=== PATIENT | female | born 1930 | race Caucasian/White ===

== ENCOUNTER → 2017-07-09 | Outpatient (CLI) | payer MEDICARE, BC ==
[~2017-07-09] MED LIST: CYAN500 PO; ELIQUIS5 MG PO; ERGO400 PO; FURO20 PO; MULTI VITAMIN1 EACH PO; Percocet 5-3251 EACH PO; SIMV40 PO; SPIR50 PO; WARF5 PO
[2017-07-09 12:19] LABS: BASOPHILS ABSOLUTE AUTO 0.02 K/mm3 (0.00-0.23); BASOPHILS PERCENT AUTO 0 % (0-2); EOSINOPHILS ABSOLUTE AUTO 0.01 K/mm3 (0.00-0.68); EOSINOPHILS PERCENT AUTO 0 % (0-6); Hematocrit 43.7 % (33.0-51.0); Hemoglobin 14.8 g/dL (11.5-16.0); IMMATURE GRAN ABSOLUTE AUTO 0.02 K/mm3 (0.00-0.10); IMMATURE GRAN PERCENT AUTO 0 % (0-1); LYMPHOCYTES ABSOLUTE AUTO 0.56 K/mm3 (0.84-5.20); LYMPHOCYTES PERCENT AUTO 9 % (21-46); MONOCYTES ABSOLUTE AUTO 0.56 K/mm3 (0.16-1.47); MONOCYTES PERCENT AUTO 9 % (4-13); Mean Corpuscular HGB 31.7 pg (26.0-34.0); Mean Corpuscular HGB Conc 33.9 g/dL (31.5-36.5); Mean Corpuscular Volume 94 fL (80-100); NEUTROPHILS ABSOLUTE AUTO 5.13 K/mm3 (1.96-9.15); NEUTROPHILS PERCENT AUTO 81 % (41-73); Platelet Count 210 K/mm3 (150-400); RDW Coefficient Variation 13.9 % (11.7-14.2); RDW Standard Deviation 46.6 fL (35.1-46.3); Red Blood Cell Count 4.67 M/mm3 (3.80-5.20)
[2017-07-09 12:35] LABS: Albumin, Blood 3.7 g/dL (3.4-5.0); Albumin/Globulin Ratio 1.1 (0.8-1.8); Bun/Creatinine Ratio 20.7 (12.0-20.0); Calcium, Blood 9.2 mg/dL (8.5-10.1); Creatinine, Blood 1.4 mg/dL (0.40-1.00); Globulin, Blood 3.4 g/dL (2.2-4.0); Potassium, Blood 4.3 mmol/L (3.5-5.5); Total Protein, Blood 7.1 g/dL (6.4-8.2); Troponin I 0.033 ng/mL (0.000-0.040)
== END | disposition home or self-care (01) ==
LOC: LAB SHORT 12:13 → LAB EV 12:13
PROVIDERS: Physician Assistant
DX: R06.02 Shortness of breath (principal)
CPT/HCPCS: 80053; 83880; 84484; 85025

== ENCOUNTER 2017-07-10 15:04 | Day surgery (SDC) | payer MEDICARE, BC ==
[~2017-07-10 15:04] MED LIST changes: -FURO20 PO; -WARF5 PO
[2017-07-10] MEDS ORDERED: WARF5 PO (17:33)
[2017-07-11] MEDS ORDERED: FURO20 PO (11:20)
== END 2017-07-10 18:03 | disposition home or self-care (01) ==
LOC: ATC 15:04
DX: I48.91 Unspecified atrial fibrillation (principal)
CPT/HCPCS: 96372; J1650

== ENCOUNTER 2017-07-11 07:46 | Day surgery (SDC) | payer MEDICARE, BC ==
[~2017-07-11 07:46] MED LIST changes: +WARF5 PO
[2017-07-11] MEDS ORDERED: FURO20 PO (11:20)
== END 2017-07-11 09:28 | disposition home or self-care (01) ==
LOC: ATC 07:46
DX: I48.91 Unspecified atrial fibrillation (principal); R06.01 Orthopnea; R60.9 Edema, unspecified; R05 Cough; I10 Essential (primary) hypertension
CPT/HCPCS: 96372; J1650

== ENCOUNTER 2017-07-12 00:23 | Day surgery (SDC) | payer MEDICARE, BC ==
[~2017-07-12] VITALS: Ht 154.9 cm; Wt 80.5 kg
[~2017-07-12 00:23] MED LIST changes: +FURO20 PO
[2017-07-12 10:18] LABS: BASOPHILS ABSOLUTE AUTO 0.02 K/mm3 (0.00-0.23); BASOPHILS PERCENT AUTO 0 % (0-2); EOSINOPHILS ABSOLUTE AUTO 0.03 K/mm3 (0.00-0.68); EOSINOPHILS PERCENT AUTO 1 % (0-6); Hematocrit 44.5 % (33.0-51.0); Hemoglobin 15.2 g/dL (11.5-16.0); IMMATURE GRAN ABSOLUTE AUTO 0.02 K/mm3 (0.00-0.10); IMMATURE GRAN PERCENT AUTO 0 % (0-1); LYMPHOCYTES ABSOLUTE AUTO 0.64 K/mm3 (0.84-5.20); LYMPHOCYTES PERCENT AUTO 12 % (21-46); MONOCYTES ABSOLUTE AUTO 0.49 K/mm3 (0.16-1.47); MONOCYTES PERCENT AUTO 9 % (4-13); Mean Corpuscular HGB 31.7 pg (26.0-34.0); Mean Corpuscular HGB Conc 34.2 g/dL (31.5-36.5); Mean Corpuscular Volume 93 fL (80-100); Mean Platelet Volume 11.4 fL (9.1-12.4); NEUTROPHILS ABSOLUTE AUTO 4.14 K/mm3 (1.96-9.15); NEUTROPHILS PERCENT AUTO 77 % (41-73); Platelet Count 230 K/mm3 (150-400); RDW Standard Deviation 47.1 fL (35.1-46.3); Red Blood Cell Count 4.79 M/mm3 (3.80-5.20); White Blood Cell Count 5.34 K/mm3 (4.00-11.30)
[2017-07-12 10:34] LABS: Bun/Creatinine Ratio 25.6 (12.0-20.0); Creatinine, Blood 1.33 mg/dL (0.40-1.00); Potassium, Blood 3.9 mmol/L (3.5-5.5)
== END 2017-07-12 09:35 | disposition home or self-care (01) ==
LOC: ATC 00:23
PROVIDERS: Internal Medicine
DX: I48.91 Unspecified atrial fibrillation (principal); I10 Essential (primary) hypertension
CPT/HCPCS: 36416; 80048; 85025; 85610; 96372; J1650

== ENCOUNTER 2017-07-13 02:05 | Day surgery (SDC) | payer MEDICARE, BC | END 2017-07-13 09:05 | disposition home or self-care (01) | LOC: ATC 02:05 | DX: I48.91 Unspecified atrial fibrillation (principal); I10 Essential (primary) hypertension | CPT/HCPCS: 36416; 85610; 99211; J1650 ==

== ENCOUNTER 2017-07-31 09:11 | Inpatient (IN) | payer MEDICARE, BC ==
[~2017-07-31] VITALS: Ht 157.5 cm; Wt 86.3 kg
[2017-07-31] MEDS ORDERED: WARF4 PO (09:25)
[2017-07-31] MEDS ORDERED: WARF3 PO (09:25)
[2017-07-31] MEDS ORDERED: METO25ER PO (09:25)
[2017-07-31] MEDS ORDERED: Lisinopril2.5 MG PO (09:25)
[2017-07-31 09:49] LABS: BASOPHILS ABSOLUTE AUTO 0.02 K/mm3 (0.00-0.23); BASOPHILS PERCENT AUTO 0 % (0-2); EOSINOPHILS ABSOLUTE AUTO 0.04 K/mm3 (0.00-0.68); EOSINOPHILS PERCENT AUTO 1 % (0-6); Hematocrit 47.6 % (33.0-51.0); IMMATURE GRAN ABSOLUTE AUTO 0.01 K/mm3 (0.00-0.10); IMMATURE GRAN PERCENT AUTO 0 % (0-1); LYMPHOCYTES ABSOLUTE AUTO 0.86 K/mm3 (0.84-5.20); LYMPHOCYTES PERCENT AUTO 16 % (21-46); MONOCYTES ABSOLUTE AUTO 0.57 K/mm3 (0.16-1.47); MONOCYTES PERCENT AUTO 11 % (4-13); Mean Corpuscular HGB 30.2 pg (26.0-34.0); Mean Corpuscular HGB Conc 31.5 g/dL (31.5-36.5); Mean Corpuscular Volume 96 fL (80-100); Mean Platelet Volume 10.6 fL (9.1-12.4); NEUTROPHILS ABSOLUTE AUTO 3.79 K/mm3 (1.96-9.15); NEUTROPHILS PERCENT AUTO 72 % (41-73); Platelet Count 212 K/mm3 (150-400); RDW Coefficient Variation 13.8 % (11.7-14.2); RDW Standard Deviation 48.7 fL (35.1-46.3); Red Blood Cell Count 4.97 M/mm3 (3.80-5.20); White Blood Cell Count 5.29 K/mm3 (4.00-11.30)
[2017-07-31 10:11] LABS: Alanine Aminotransfer (ALT/SGP 87 U/L (12-78); Albumin, Blood 3.2 g/dL (3.4-5.0); Albumin/Globulin Ratio 0.9 (0.8-1.8); Alk Phos 127 U/L (50-136); Anion Gap 11 mmol/L (6-16); Aspartate Aminotrans (AST/SGOT 61 U/L (12-37); Bilirubin, Total 0.6 mg/dL (0.1-1.0); Blood Urea Nitrogen 82 mg/dL (8-24); Bun/Creatinine Ratio 44.3 (12.0-20.0); CO2, Blood 24 mmol/L (21-32); Calcium, Blood 8.5 mg/dL (8.5-10.1); Chloride, Blood 103 mmol/L (98-108); Creatinine, Blood 1.85 mg/dL (0.40-1.00); Globulin, Blood 3.4 g/dL (2.2-4.0); Glomerular Filtration Rate 28 (60-); Glucose, Blood 80 mg/dL (70-99); Potassium, Blood 4.3 mmol/L (3.5-5.5); Sodium, Blood 138 mmol/L (136-145); Total Protein, Blood 6.6 g/dL (6.4-8.2); Troponin I <0.015 ng/mL (0.000-0.040)
[2017-07-31 10:14] LABS: Prothrombin Time Results 85.4 Sec (9.7-11.5)
[2017-07-31 10:27] LABS: International Normalized Ratio 7.71
[2017-07-31 18:51] LABS: CPK Creatine Kinase 51 U/L (26-193); Creatine Kinase MB 1.9 ng/mL (0.0-3.6); Creatine Kinase MB Index 3.7 (0.0-4.0); Troponin I <0.015 ng/mL (0.000-0.040)
[2017-08-01 02:27] LABS: Hematocrit 45.4 % (33.0-51.0); Mean Corpuscular HGB 30.6 pg (26.0-34.0); Mean Platelet Volume 10.7 fL (9.1-12.4); Platelet Count 211 K/mm3 (150-400); RDW Standard Deviation 47.5 fL (35.1-46.3)
[2017-08-01 02:33] LABS: Mean Corpuscular Volume 93 fL (80-100); Prothrombin Time Results 56.8 Sec (9.7-11.5)
[2017-08-01 02:34] LABS: International Normalized Ratio 5.19
[2017-08-01 02:36] LABS: CPK Creatine Kinase 59 U/L (26-193); Creatine Kinase MB 2.1 ng/mL (0.0-3.6); Creatine Kinase MB Index 3.6 (0.0-4.0); Troponin I <0.015 ng/mL (0.000-0.040)
[2017-08-01 03:06] LABS: Albumin, Blood 3.2 g/dL (3.4-5.0); Bilirubin, Total 0.9 mg/dL (0.1-1.0); Calcium, Blood 8.6 mg/dL (8.5-10.1); Creatinine, Blood 1.81 mg/dL (0.40-1.00); Globulin, Blood 3.3 g/dL (2.2-4.0); Magnesium, Blood 2.2 mg/dL (1.6-2.4); Potassium, Blood 4.2 mmol/L (3.5-5.5); Total Protein, Blood 6.5 g/dL (6.4-8.2)
[2017-08-02 04:23] LABS: Albumin, Blood 3.3 g/dL (3.4-5.0); Albumin/Globulin Ratio 0.9 (0.8-1.8); Bilirubin, Total 1.1 mg/dL (0.1-1.0); Bun/Creatinine Ratio 42.7 (12.0-20.0); Calcium, Blood 8.9 mg/dL (8.5-10.1); Creatinine, Blood 2.06 mg/dL (0.40-1.00); Globulin, Blood 3.5 g/dL (2.2-4.0); Potassium, Blood 5.2 mmol/L (3.5-5.5); Total Protein, Blood 6.8 g/dL (6.4-8.2)
[2017-08-02 09:21] LABS: International Normalized Ratio 3.35; Prothrombin Time Results 36.2 Sec (9.7-11.5)
[2017-08-03 04:39] LABS: International Normalized Ratio 3.05; Prothrombin Time Results 32.8 Sec (9.7-11.5)
[2017-08-03 04:45] LABS: Alanine Aminotransfer (ALT/SGP 84 U/L (12-78); Albumin, Blood 3.2 g/dL (3.4-5.0); Alk Phos 129 U/L (50-136); Anion Gap 11 mmol/L (6-16); Aspartate Aminotrans (AST/SGOT 57 U/L (12-37); Bilirubin, Direct 0.3 mg/dL (0.0-0.3); Bilirubin, Indirect 0.9 mg/dL (0.1-0.7); Bilirubin, Total 1.2 mg/dL (0.1-1.0); Blood Urea Nitrogen 95 mg/dL (8-24); Bun/Creatinine Ratio 45.2 (12.0-20.0); CO2, Blood 23 mmol/L (21-32); Calcium, Blood 9.1 mg/dL (8.5-10.1); Chloride, Blood 97 mmol/L (98-108); Globulin, Blood 3.3 g/dL (2.2-4.0); Glomerular Filtration Rate 24 (60-); Glucose, Blood 116 mg/dL (70-99); Phosphorus, Blood 4.8 mg/dL (2.5-4.9); Potassium, Blood 5.3 mmol/L (3.5-5.5); Sodium, Blood 131 mmol/L (136-145); Total Protein, Blood 6.5 g/dL (6.4-8.2)
[2017-08-04 04:04] LABS: BASOPHILS ABSOLUTE AUTO 0.03 K/mm3 (0.00-0.23); BASOPHILS PERCENT AUTO 1 % (0-2); EOSINOPHILS ABSOLUTE AUTO 0.15 K/mm3 (0.00-0.68); EOSINOPHILS PERCENT AUTO 3 % (0-6); Hematocrit 44.1 % (33.0-51.0); Hemoglobin 14.5 g/dL (11.5-16.0); IMMATURE GRAN ABSOLUTE AUTO 0.01 K/mm3 (0.00-0.10); IMMATURE GRAN PERCENT AUTO 0 % (0-1); LYMPHOCYTES PERCENT AUTO 19 % (21-46); MONOCYTES ABSOLUTE AUTO 0.53 K/mm3 (0.16-1.47); MONOCYTES PERCENT AUTO 11 % (4-13); Mean Corpuscular HGB Conc 32.9 g/dL (31.5-36.5); Mean Corpuscular Volume 91 fL (80-100); Mean Platelet Volume 10.8 fL (9.1-12.4); NEUTROPHILS ABSOLUTE AUTO 3.21 K/mm3 (1.96-9.15); NEUTROPHILS PERCENT AUTO 67 % (41-73); Platelet Count 237 K/mm3 (150-400); RDW Coefficient Variation 13.8 % (11.7-14.2); RDW Standard Deviation 46.5 fL (35.1-46.3); Red Blood Cell Count 4.83 M/mm3 (3.80-5.20); White Blood Cell Count 4.83 K/mm3 (4.00-11.30)
[2017-08-04 04:29] LABS: Bun/Creatinine Ratio 49.5 (12.0-20.0); Calcium, Blood 8.9 mg/dL (8.5-10.1); Creatinine, Blood 1.84 mg/dL (0.40-1.00); Potassium, Blood 4.3 mmol/L (3.5-5.5)
[2017-08-04 08:12] LABS: HBSAG SCREEN Negative (Negative); HEP A AB, IGM Negative (Negative); HEP B CORE AB, IGM Negative (Negative); HEP C VIRUS AB <0.1 (0.0-0.9)
[2017-08-05] MEDS ORDERED: LANOXIN125 MCG PO (09:21)
[2017-08-05] MEDS ORDERED: POTCHL20ER PO (09:22)
== END 2017-08-05 09:48 | disposition home health service (06) | DRG 291 ==
LOC: ER 09:11 → PCU 13:00 → ERHOLD 13:00 → PCU 19:27
PROVIDERS: Emergency Medicine; Hospitalist; Internal Medicine
DX: I13.0 Hypertensive heart and chronic kidney disease with heart failure and stage 1 through stage 4 chronic kidney disease, or unspecified chronic kidney disease (principal); I50.23 Acute on chronic systolic (congestive) heart failure; N17.9 Acute kidney failure, unspecified; Z87.891 Personal history of nicotine dependence; Z79.01 Long term (current) use of anticoagulants; Z79.891 Long term (current) use of opiate analgesic; I48.2 Chronic atrial fibrillation; Z96.651 Presence of right artificial knee joint; G47.00 Insomnia, unspecified; N18.3 Chronic kidney disease, stage 3 (moderate); R74.0 Nonspecific elevation of levels of transaminase and lactic acid dehydrogenase [LDH]; E78.5 Hyperlipidemia, unspecified; R53.1 Weakness; E87.70 Fluid overload, unspecified; R79.1 Abnormal coagulation profile; R19.7 Diarrhea, unspecified; E65 Localized adiposity
CPT/HCPCS: 36415; 71046; 80048; 80053; 80069; 80074; 82248; 82550; 82553; 83735; 83880; 84443; 84484; 85025; 85027; 85610; 93005; 93010; 96374; 96375; 97110; 97116; 97161; 97166; 97530; 97535; 99285; G8978; G8979; G8987; G8988; J1160; J1940; J3010

== ENCOUNTER 2018-05-03 09:27 | Emergency (ER) | payer MEDICARE, BC ==
[~2018-05-03] VITALS: Ht 157.5 cm; Wt 80.7 kg
[~2018-05-03 09:27] MED LIST changes: +LANOXIN125 MCG PO; +Lisinopril2.5 MG PO; +METO25ER PO; +POTCHL20ER PO; +SPIR25 PO; +WARF3 PO; +WARF4 PO
[2018-05-03 11:04] LABS: BASOPHILS ABSOLUTE AUTO 0.02 K/mm3 (0.00-0.23); BASOPHILS PERCENT AUTO 0 % (0-2); EOSINOPHILS ABSOLUTE AUTO 0.06 K/mm3 (0.00-0.68); EOSINOPHILS PERCENT AUTO 1 % (0-6); Hemoglobin 16.6 g/dL (11.5-16.0); IMMATURE GRAN ABSOLUTE AUTO 0.01 K/mm3 (0.00-0.10); IMMATURE GRAN PERCENT AUTO 0 % (0-1); LYMPHOCYTES ABSOLUTE AUTO 0.58 K/mm3 (0.84-5.20); LYMPHOCYTES PERCENT AUTO 13 % (21-46); MONOCYTES ABSOLUTE AUTO 0.47 K/mm3 (0.16-1.47); MONOCYTES PERCENT AUTO 10 % (4-13); Mean Corpuscular HGB 29.6 pg (26.0-34.0); Mean Corpuscular HGB Conc 31.3 g/dL (31.5-36.5); Mean Corpuscular Volume 95 fL (80-100); Mean Platelet Volume 11.1 fL (9.1-12.4); NEUTROPHILS ABSOLUTE AUTO 3.47 K/mm3 (1.96-9.15); NEUTROPHILS PERCENT AUTO 75 % (41-73); Platelet Count 180 K/mm3 (150-400); RDW Coefficient Variation 17.7 % (11.7-14.2); White Blood Cell Count 4.61 K/mm3 (4.00-11.30)
[2018-05-03 11:26] LABS: Albumin, Blood 3.3 g/dL (3.4-5.0); Albumin/Globulin Ratio 0.8 (0.8-1.8); Bilirubin, Total 0.9 mg/dL (0.1-1.0); Bun/Creatinine Ratio 40.3 (12.0-20.0); Calcium, Blood 9.2 mg/dL (8.5-10.1); Creatinine, Blood 1.24 mg/dL (0.40-1.00); Potassium, Blood 4.1 mmol/L (3.5-5.5); Total Protein, Blood 7.3 g/dL (6.4-8.2)
== END 2018-05-03 17:18 | disposition home or self-care (01) ==
LOC: ER 09:27
PROVIDERS: Emergency Medicine
DX: R60.0 Localized edema (principal); Z79.899 Other long term (current) drug therapy; Z79.01 Long term (current) use of anticoagulants; I11.0 Hypertensive heart disease with heart failure; I50.9 Heart failure, unspecified; I48.91 Unspecified atrial fibrillation; E78.5 Hyperlipidemia, unspecified; Z87.891 Personal history of nicotine dependence
CPT/HCPCS: 29580; 36415; 71046; 80053; 83880; 85025; 93005; 93010; 99284-25

== ENCOUNTER 2018-05-23 00:32 | Day surgery (SDC) | payer MEDICARE, BC | END 2018-05-23 12:00 | disposition home or self-care (01) | LOC: WOUND 00:32 | DX: L97.821 Non-pressure chronic ulcer of other part of left lower leg limited to breakdown of skin (principal); I13.0 Hypertensive heart and chronic kidney disease with heart failure and stage 1 through stage 4 chronic kidney disease, or unspecified chronic kidney disease; I50.9 Heart failure, unspecified; N18.9 Chronic kidney disease, unspecified; I48.91 Unspecified atrial fibrillation; E78.5 Hyperlipidemia, unspecified | CPT/HCPCS: G0463 ==

== ENCOUNTER 2018-05-30 00:12 | Day surgery (SDC) | payer MEDICARE, BC ==
[~2018-05-30 00:12] MED LIST changes: -CYAN500 PO; -MULTI VITAMIN1 EACH PO; -SPIR25 PO
[2018-05-30] MEDS ORDERED: Lisinopril2.5 MG PO (17:52)
[2018-05-30] MEDS ORDERED: WARF2 PO (17:52)
[2018-05-30] MEDS ORDERED: FURO40 PO (17:52)
[2018-05-30] MEDS ORDERED: METO25ER PO (17:52)
[2018-05-30] MEDS ORDERED: SIMV40 PO (17:53)
[2018-05-30] MEDS ORDERED: K-TAB ER20 MEQ PO (17:53)
[2018-05-30] MEDS ORDERED: SPIR25 PO (19:05)
[2018-05-30] MEDS ORDERED: MULTI VITAMIN1 EACH PO (19:25)
[2018-05-30] MEDS ORDERED: VITAMIN B-121000 MCG PO (19:26)
[2018-05-30] MEDS ORDERED: ASCO500 PO (19:28)
[2018-05-30] MEDS ORDERED: BIOTIN2500 MCG PO (19:29)
[2018-05-30] MEDS ORDERED: CHOL10002 PO (19:33)
== END 2018-05-30 23:01 | disposition home or self-care (01) ==
LOC: WOUND 00:12
DX: L97.821 Non-pressure chronic ulcer of other part of left lower leg limited to breakdown of skin (principal); I13.0 Hypertensive heart and chronic kidney disease with heart failure and stage 1 through stage 4 chronic kidney disease, or unspecified chronic kidney disease; N18.9 Chronic kidney disease, unspecified; I50.9 Heart failure, unspecified; I48.91 Unspecified atrial fibrillation; E78.5 Hyperlipidemia, unspecified
CPT/HCPCS: G0463

== ENCOUNTER 2018-05-30 16:57 | Inpatient (IN) | payer MEDICARE, BC ==
[~2018-05-30] VITALS: Ht 152.4 cm; Wt 69.2 kg
[2018-05-30 17:52] LABS: BASOPHILS ABSOLUTE AUTO 0.02 K/mm3 (0.00-0.23); BASOPHILS PERCENT AUTO 0 % (0-2); EOSINOPHILS ABSOLUTE AUTO 0.01 K/mm3 (0.00-0.68); EOSINOPHILS PERCENT AUTO 0 % (0-6); Hematocrit 35.9 % (33.0-51.0); Hemoglobin 11.2 g/dL (11.5-16.0); IMMATURE GRAN ABSOLUTE AUTO 0.02 K/mm3 (0.00-0.10); IMMATURE GRAN PERCENT AUTO 0 % (0-1); LYMPHOCYTES ABSOLUTE AUTO 0.77 K/mm3 (0.84-5.20); LYMPHOCYTES PERCENT AUTO 15 % (21-46); MONOCYTES ABSOLUTE AUTO 0.45 K/mm3 (0.16-1.47); MONOCYTES PERCENT AUTO 9 % (4-13); Mean Corpuscular HGB 30.4 pg (26.0-34.0); Mean Corpuscular HGB Conc 31.2 g/dL (31.5-36.5); Mean Corpuscular Volume 98 fL (80-100); Mean Platelet Volume 11.3 fL (9.1-12.4); NEUTROPHILS ABSOLUTE AUTO 3.77 K/mm3 (1.96-9.15); NEUTROPHILS PERCENT AUTO 75 % (41-73); Platelet Count 167 K/mm3 (150-400); RDW Coefficient Variation 17.2 % (11.7-14.2); RDW Standard Deviation 61.7 fL (35.1-46.3); Red Blood Cell Count 3.68 M/mm3 (3.80-5.20); White Blood Cell Count 5.04 K/mm3 (4.00-11.30)
[2018-05-30] MEDS ORDERED: METO25ER PO (17:52)
[2018-05-30] MEDS ORDERED: Lisinopril2.5 MG PO (17:52)
[2018-05-30] MEDS ORDERED: FURO40 PO (17:52)
[2018-05-30] MEDS ORDERED: WARF2 PO (17:52)
[2018-05-30] MEDS ORDERED: SIMV40 PO (17:53)
[2018-05-30] MEDS ORDERED: K-TAB ER20 MEQ PO (17:53)
[2018-05-30 17:59] LABS: Albumin, Blood 2.5 g/dL (3.4-5.0); Albumin/Globulin Ratio 0.8 (0.8-1.8); Bilirubin, Total 0.8 mg/dL (0.1-1.0); Bun/Creatinine Ratio 89.2 (12.0-20.0); Creatinine, Blood 1.3 mg/dL (0.40-1.00); Potassium, Blood 5.6 mmol/L (3.5-5.5); Total Protein, Blood 5.5 g/dL (6.4-8.2)
[2018-05-30 18:26] LABS: Prothrombin Time Results 38.9 Sec (9.7-11.5)
[2018-05-30 18:34] LABS: International Normalized Ratio 4.18
[2018-05-30] MEDS ORDERED: SPIR25 PO (19:05)
[2018-05-30] MEDS ORDERED: MULTI VITAMIN1 EACH PO (19:25)
[2018-05-30] MEDS ORDERED: VITAMIN B-121000 MCG PO (19:26)
[2018-05-30] MEDS ORDERED: ASCO500 PO (19:28)
[2018-05-30] MEDS ORDERED: BIOTIN2500 MCG PO (19:29)
[2018-05-30] MEDS ORDERED: CHOL10002 PO (19:33)
[2018-05-30 20:00] LABS: Calcium, Ionized (POC) 1.54 mmol/L (1.10-1.46); Chloride (POC) 107 mmol/L (98-108); Creatinine (POC) 1.4 mg/dL (0.6-1.0); Glucose (ISTAT POC) 118 mg/dL (70-99); Hemoglobin (POC) 10.2 g/dL (12.0-16.0); Potassium (POC) 5.4 mmol/L (3.5-5.5); Sodium (POC) 144 mmol/L (135-148); Total CO2 (POC) 25 mmol/L (21-32)
[2018-05-30 21:28] LABS: Percent Saturation 28.5 % (15.0-50.0)
--- NOTE | 2018-05-30 23:00 | NUR ---
ASSESSMENT PT ARRIVED TO ICU 08 VIA GURNEY FROM ER AT 2235. PT AWAKE, A&O. TRANSFERED TO BED BY STAFF WITH SLIDER SHEET. PT DENIES PAIN OR DISCOMFORT. TURNING AND MOVING SELF IN BED. LUNGS CLEAR ON 2 LITER O2 VIA NC. RESP EVEN AND NONLABORED. HEART RATE IRREGULAR-AFIB. BP STABLE. NO EDEMA. BT+ ABD SOFT AND NONTENDER. DENIES N/V. IV 18G TO RIGHT AC SALINE LOCKED, SITE CLEAR. IV 18G TO LEFT AC WITH PROTONIX GTT AT 10 ML/HR. RAUL CARE DONE AND PHOTO TAKEN OF EXCORIATION OF RAUL AREA. DRIED BLACK STOOL CLEANED FROM RAUL AREA. LEFT CALF WITH ALIS WRAP BANDAGE NOTED PT STATES,"I HAVE BEEN GOING TO WOUND CLINIC FOR THAT WOUND". DRSG REMOVED AND PHOTO DONE. NEW FOAM DRSG AND ALIS WRAP REAPPLIED. HOLDING SCD'D DUE TO WOUND TO LEFT CALF. PT ABLE TO ANSWER QUESTIONS APPROP.
[2018-05-30 23:13] LABS: BASOPHILS ABSOLUTE AUTO 0.02 K/mm3 (0.00-0.23); BASOPHILS PERCENT AUTO 0 % (0-2); EOSINOPHILS PERCENT AUTO 0 % (0-6); Hematocrit 30.2 % (33.0-51.0); Hemoglobin 9.3 g/dL (11.5-16.0); IMMATURE GRAN ABSOLUTE AUTO 0.03 K/mm3 (0.00-0.10); IMMATURE GRAN PERCENT AUTO 1 % (0-1); LYMPHOCYTES ABSOLUTE AUTO 1.23 K/mm3 (0.84-5.20); LYMPHOCYTES PERCENT AUTO 20 % (21-46); MONOCYTES ABSOLUTE AUTO 0.68 K/mm3 (0.16-1.47); MONOCYTES PERCENT AUTO 11 % (4-13); Mean Corpuscular HGB 30.5 pg (26.0-34.0); Mean Corpuscular HGB Conc 30.8 g/dL (31.5-36.5); Mean Corpuscular Volume 99 fL (80-100); Mean Platelet Volume 11.3 fL (9.1-12.4); NEUTROPHILS ABSOLUTE AUTO 4.09 K/mm3 (1.96-9.15); NEUTROPHILS PERCENT AUTO 68 % (41-73); Platelet Count 146 K/mm3 (150-400); RDW Coefficient Variation 17.4 % (11.7-14.2); RDW Standard Deviation 62.2 fL (35.1-46.3); Red Blood Cell Count 3.05 M/mm3 (3.80-5.20); White Blood Cell Count 6.05 K/mm3 (4.00-11.30)
[2018-05-31 03:32] LABS: BASOPHILS ABSOLUTE AUTO 0.02 K/mm3 (0.00-0.23); BASOPHILS PERCENT AUTO 0 % (0-2); EOSINOPHILS ABSOLUTE AUTO 0.02 K/mm3 (0.00-0.68); EOSINOPHILS PERCENT AUTO 0 % (0-6); Hematocrit 25.5 % (33.0-51.0); Hemoglobin 7.9 g/dL (11.5-16.0); IMMATURE GRAN ABSOLUTE AUTO 0.02 K/mm3 (0.00-0.10); IMMATURE GRAN PERCENT AUTO 0 % (0-1); LYMPHOCYTES ABSOLUTE AUTO 1.23 K/mm3 (0.84-5.20); LYMPHOCYTES PERCENT AUTO 23 % (21-46); MONOCYTES ABSOLUTE AUTO 0.64 K/mm3 (0.16-1.47); MONOCYTES PERCENT AUTO 12 % (4-13); Mean Corpuscular HGB 29.8 pg (26.0-34.0); Mean Platelet Volume 11.4 fL (9.1-12.4); NEUTROPHILS ABSOLUTE AUTO 3.44 K/mm3 (1.96-9.15); NEUTROPHILS PERCENT AUTO 64 % (41-73); Platelet Count 137 K/mm3 (150-400); RDW Coefficient Variation 17.3 % (11.7-14.2); RDW Standard Deviation 60.1 fL (35.1-46.3); Red Blood Cell Count 2.65 M/mm3 (3.80-5.20); White Blood Cell Count 5.37 K/mm3 (4.00-11.30)
[2018-05-31 03:33] LABS: Mean Corpuscular Volume 96 fL (80-100)
--- NOTE | 2018-05-31 03:43 | NUR ---
LABS CALL TO DR GUADARRAMA REGARDING H&H OF 7.9.5. RECEIVED ORDER FOR ONE UNIT OF PRBC WITH F/U H&H 2HRS AFTER BLOOD COMPLETE
[2018-05-31 03:45] LABS: International Normalized Ratio 1.75
[2018-05-31 03:49] LABS: Prothrombin Time Results 17.6 Sec (9.7-11.5)
--- NOTE | 2018-05-31 04:25 | NUR ---
TRANSFUSION PRBC STARTED AFTER NEW IV 20G PLACED IN LEFT WRIST. NS DECREASED TO TKO DURING TRANSFUSION. PT SITTING UP IN BED WATCHING TV.
--- NOTE | 2018-05-31 08:00 | NUR ---
PT LAYING IN BED, AWAKE A/OX3 VERY FORGETFUL ABOUT LINES, JUST FINISHING UP HER UNIT OF PRBC'S, ORDERED AN H&H AT 1000 PER ORDER. LUNGS ARE CLEAR T/O, RESP EVEN AND UNLABORED, NO COUGH NOTED, HRIRR, MONITOR IN PLACE RUNNING AFIB PER MONITOR, SEE STRIP, NO EDEMA NOTED, PPP FAINT, CAP REFILL <3 SEC, VS STABLE, AFEBRILE, IV SITES ARE CLEAR AND PATENT, TO LAC AND LEFT WRIST, BTX4, ABD FLAT SOFT NONTENDER, VOIDS WITHOUT DIFF, SKIN C/W/D, MAEW, LEVY, CALL LIGHT IN REACH, BUT SHE CALLS OUT.
--- NOTE | 2018-05-31 08:31 | NUR ---
ASSISTED PT TO BSC, SHE WAS ABLE TO STAND AND TRANSFER BUT IS WEAK HAD A SMALL SOFT MAROON STOOL. CALL LIGHT IN REACH.
[2018-05-31 10:17] LABS: Hematocrit 28.9 % (33.0-51.0); Hemoglobin 9.2 g/dL (11.5-16.0)
--- NOTE | 2018-05-31 10:34 | NUR ---
CALLED TO CONFIRM CONSULT WAS CALLED IN.
--- NOTE | 2018-05-31 12:42 | NUR ---
05/31/18 1242 Nataliia Lcok MAC CASE WITH DR. DORAN
--- NOTE | 2018-05-31 13:51 | NUR ---
PT HAD HER EGD AND IS AWAKE DRINKING WATER. VS STABLE, NO COMPLAINTS. DID ATTEMPT TO GET OOB AND GO HOME BECAUSE HER PROCEDURE IS DONE, SHE REORIENTED PRETTY WELL. NO FURTHER COMPLAINTS. CALL LIGHT IN REACH.
[2018-05-31 13:55] LABS: Hematocrit 28.7 % (33.0-51.0)
--- NOTE | 2018-05-31 14:24 | NUR ---
DAUGHTER IN ROOM WITH PT. SHE IS EATING JELLO TOLERATING WELL. CALL LIGHT IN REACH.
--- NOTE | 2018-05-31 17:33 | NUR ---
PT DOING WELL, VS STABLE. DENIES COMPLAINTS. DR. NERI CHANGED HER TO PCU STATUS. WARM BLANKET GIVEN SHE WAS CHILLY. TOLERATING CLEAR LIQUIDS. [facility].
[2018-06-01 03:56] LABS: Hematocrit 29.4 % (33.0-51.0); Hemoglobin 9.1 g/dL (11.5-16.0); Mean Corpuscular HGB 30.8 pg (26.0-34.0); Mean Platelet Volume 11.1 fL (9.1-12.4); NRBC ABSOLUTE 0.03 K/mm3 (0.00-0.02); NRBC Auto 0.5 /100 WBC (0.0-0.2); Platelet Count 151 K/mm3 (150-400); RDW Coefficient Variation 17.5 % (11.7-14.2); RDW Standard Deviation 62.4 fL (35.1-46.3); Red Blood Cell Count 2.95 M/mm3 (3.80-5.20); White Blood Cell Count 6.64 K/mm3 (4.00-11.30)
[2018-06-01 03:57] LABS: Mean Corpuscular Volume 100 fL (80-100)
[2018-06-01 04:14] LABS: Bun/Creatinine Ratio 68.6 (12.0-20.0); Calcium, Blood 8.5 mg/dL (8.5-10.1); Creatinine, Blood 1.05 mg/dL (0.40-1.00); Potassium, Blood 4.2 mmol/L (3.5-5.5)
--- NOTE | 2018-06-01 05:01 | NUR ---
SHIFT SUMMARY: PATIENT UP TO USE BSC X2 AND STABLE WITH FWW AND 1 PERSON ASSIST. HR INCREASING, WILL NOTIFY MD, BED ALARM ON AND BED LOW AND LOCKED
--- NOTE | 2018-06-01 07:27 | NUR ---
HEART RATE: PATIENT HEART RATE CLIMBING AND AVERAGING APPROX 120 TO 130, MD MAYEN NOTIFIED, ORDERS RECIEVED, MEDICATION ADMINISTERED PER MD ORDER. REPORTING OFF TO DAY SHIFT RN OF SITUATION.
--- NOTE | 2018-06-01 08:00 | NUR ---
pt sitting up on the side of the bed eating breakfast, states she feels good and had a good night. denies pain. a/ox3, a bit forgetful at times, lungs are clear in upper [place], dim in bases, resp even and unlabored, no cough noted, hrirr, tele in place running afib per monitor, see strip, no edema noted, cap refill <3sec, vs stable, afebrile, iv sites are clear and patent, s.l., btx4, abd flat soft nontender, voids without diff, skin frail, has a wound to left calf that has a dressing in place, will check it today, she goes to the wound clinic for tx, jose m, general weakness, is a one person assist to bsc, rajni, call light in reach.
--- NOTE | 2018-06-01 19:21 | NUR ---
pt has had an uneventful day. ambulated out in [place] with PT. states she feels good. heart rate is still tachy, but better, no further changes this shift, call light in reach.
[2018-06-02 03:57] LABS: Hematocrit 29.4 % (33.0-51.0); Hemoglobin 8.7 g/dL (11.5-16.0); Mean Corpuscular HGB 30.2 pg (26.0-34.0); Mean Corpuscular HGB Conc 29.6 g/dL (31.5-36.5); Mean Corpuscular Volume 102 fL (80-100); Mean Platelet Volume 11.3 fL (9.1-12.4); NRBC ABSOLUTE 0.03 K/mm3 (0.00-0.02); NRBC Auto 0.5 /100 WBC (0.0-0.2); Platelet Count 140 K/mm3 (150-400); RDW Standard Deviation 64.2 fL (35.1-46.3); Red Blood Cell Count 2.88 M/mm3 (3.80-5.20)
[2018-06-02 04:18] LABS: Albumin, Blood 2.8 g/dL (3.4-5.0); Anion Gap 8 mmol/L (6-16); Blood Urea Nitrogen 51 mg/dL (8-24); Bun/Creatinine Ratio 55.4 (12.0-20.0); CO2, Blood 21 mmol/L (21-32); Calcium, Blood 8.1 mg/dL (8.5-10.1); Chloride, Blood 115 mmol/L (98-108); Creatinine, Blood 0.92 mg/dL (0.40-1.00); Glomerular Filtration Rate >60 (60-); Glucose, Blood 122 mg/dL (70-99); Phosphorus, Blood 2.7 mg/dL (2.5-4.9); Potassium, Blood 3.9 mmol/L (3.5-5.5); Sodium, Blood 144 mmol/L (136-145)
--- NOTE | 2018-06-02 04:57 | NUR ---
SHIFT SUMMARY: PATIENT HR AND BP MUCH IMPROVED, SLEPT WELL BUT SOMETIMES SIT AT EDGE OF BED AND DOSES OFF. CALL LIGHT WITHIN REACH, VSS, BED LOW AND LOCKED WITH EXIT ALARM ON.
--- NOTE | 2018-06-02 11:04 | NUR ---
BEGINNING OF SHIFT Assumed care of pt at 0700. Report received from Monserrat HERNANDEZ. Pt on room air. Atrial fibrillation per telemetry. Pt up to chair with standby assist. Bed in lowest position. Call light in reach. Pt denies need at this time.
--- NOTE | 2018-06-02 17:53 | NUR ---
SHIFT SUMMARY No acute changes since shift assessment. Pt has spent majority of shift sitting on edge of bed or in chair. Will continue to closely monitor until care handoff and bedside report with oncoming RN.
--- NOTE | 2018-06-02 21:38 | NUR ---
1900 assumed care of patient, resting in bed w/o complaints, see [facility] for full assessment. call light in reached, water provided, explained plan for tonight and patient agreed, will continue to monitor
--- NOTE | 2018-06-03 05:54 | NUR ---
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 NO CHANGES T/O SHIFT, SITTING ON SIDE OF BED DRINKING COFFEE. BED IN LOW POSITION, CALL LIGHT IN REACH, ROOM TIDIED, WILL MONITOR TILL DAY SHIFT HAND OFF.
--- NOTE | 2018-06-03 07:32 | NUR ---
BEGINNING OF SHIFT Assumed care at 0700. Report recieved from Nathaniel HERNANDEZ. Pt on room air. Atrial fibrillation per telemetry. Pt OOB to chair. Call light in reach. Pt denies need at this time.
[2018-06-03] MEDS ORDERED: PANT40 PO (12:39)
[2018-06-03] MEDS ORDERED: GAVILAX17 GM PO (12:40)
--- NOTE | 2018-06-03 13:18 | NUR ---
DISCHARGE Pt discharged from unit at 1315, accompanied by her daughter. Pt escorted via wheelchair by Perla PRADHAN. Discharge education provided. This RN also discussed potential risks since warfarin has been discontinued. This RN stressed imporatnce of follow up appointment with Dr Peacock. Pt and daughter verbalized understanding. This RN notified patient and daughter of follow up appointments. Prior to discharge, dressings to LLE changed by this RN.
== END 2018-06-03 13:10 | disposition home or self-care (01) | DRG 377 ==
LOC: ER 16:57 → ICUW 16:58 → ICUE 16:58 → PCU 05-31 18:43
PROVIDERS: Emergency Medicine; Internal Medicine; Student in an Organized Health Care Education/Training Program; ADMIT Hospitalist
PROC: 0DJ08ZZ Inspection of Upper Intestinal Tract, Via Natural or Artificial Opening Endoscopic (ICD-10-PCS; principal; 2018-05-31 12:00)
DX: K29.71 Gastritis, unspecified, with bleeding (principal); I50.43 Acute on chronic combined systolic (congestive) and diastolic (congestive) heart failure; I13.0 Hypertensive heart and chronic kidney disease with heart failure and stage 1 through stage 4 chronic kidney disease, or unspecified chronic kidney disease; D62 Acute posthemorrhagic anemia; K92.1 Melena; I48.2 Chronic atrial fibrillation; Z79.01 Long term (current) use of anticoagulants; N18.3 Chronic kidney disease, stage 3 (moderate); E86.0 Dehydration; I35.0 Nonrheumatic aortic (valve) stenosis; E78.5 Hyperlipidemia, unspecified; K22.2 Esophageal obstruction; Z87.891 Personal history of nicotine dependence
CPT/HCPCS: 36415; 36430; 71046; 80047; 80048; 80053; 80069; 82272; 82728; 83540; 83550; 85014; 85018; 85025; 85027; 85610; 85730; 86850; 86900; 86901; 86923; 90686; 93005; 93010; 96365; 96366; 96368; 96375; 96376; 97161; 97165; 97530; 99285-25; C9113; G0008; G0378; J0610; J2250; J3430; J7030; J7050; J7070; P9016; P9059

== ENCOUNTER 2018-06-06 01:17 | Day surgery (SDC) | payer MEDICARE, BC ==
[~2018-06-06 01:17] MED LIST changes: +ASCO500 PO; +BIOTIN2500 MCG PO; +CHOL10002 PO; +FURO40 PO; +GAVILAX17 GM PO; +K-TAB ER20 MEQ PO; +MULTI VITAMIN1 EACH PO; +PANT40 PO; +SPIR25 PO; +VITAMIN B-121000 MCG PO; +WARF2 PO
== END 2018-06-06 22:48 | disposition home or self-care (01) ==
LOC: WOUND 01:17
DX: L97.821 Non-pressure chronic ulcer of other part of left lower leg limited to breakdown of skin (principal); I13.0 Hypertensive heart and chronic kidney disease with heart failure and stage 1 through stage 4 chronic kidney disease, or unspecified chronic kidney disease; I50.9 Heart failure, unspecified; N18.9 Chronic kidney disease, unspecified; I48.91 Unspecified atrial fibrillation; E78.5 Hyperlipidemia, unspecified; I25.2 Old myocardial infarction; Z87.891 Personal history of nicotine dependence
CPT/HCPCS: G0463

== ENCOUNTER 2018-06-13 12:30 | Day surgery (SDC) | payer MEDICARE, BC | END 2018-06-13 23:51 | disposition home or self-care (01) | LOC: WOUND 12:30 | DX: L97.821 Non-pressure chronic ulcer of other part of left lower leg limited to breakdown of skin (principal); I13.0 Hypertensive heart and chronic kidney disease with heart failure and stage 1 through stage 4 chronic kidney disease, or unspecified chronic kidney disease; I50.9 Heart failure, unspecified; N18.9 Chronic kidney disease, unspecified; I48.91 Unspecified atrial fibrillation; E78.5 Hyperlipidemia, unspecified; I89.0 Lymphedema, not elsewhere classified; I25.2 Old myocardial infarction; M06.9 Rheumatoid arthritis, unspecified | CPT/HCPCS: G0463 ==

== ENCOUNTER 2018-06-20 15:14 | Day surgery (SDC) | payer MEDICARE, BC | END 2018-06-20 23:34 | disposition home or self-care (01) | LOC: WOUND 15:14 | DX: L97.821 Non-pressure chronic ulcer of other part of left lower leg limited to breakdown of skin (principal); I13.0 Hypertensive heart and chronic kidney disease with heart failure and stage 1 through stage 4 chronic kidney disease, or unspecified chronic kidney disease; I50.9 Heart failure, unspecified; N18.9 Chronic kidney disease, unspecified; I25.2 Old myocardial infarction; I48.91 Unspecified atrial fibrillation; E78.5 Hyperlipidemia, unspecified | CPT/HCPCS: G0463 ==

== ENCOUNTER 2018-07-04 15:00 | Day surgery (SDC) | payer MEDICARE, BC | END 2018-07-04 22:46 | disposition home or self-care (01) | LOC: WOUND 15:00 | DX: L97.821 Non-pressure chronic ulcer of other part of left lower leg limited to breakdown of skin (principal); I87.2 Venous insufficiency (chronic) (peripheral); I13.0 Hypertensive heart and chronic kidney disease with heart failure and stage 1 through stage 4 chronic kidney disease, or unspecified chronic kidney disease; I50.9 Heart failure, unspecified; N18.9 Chronic kidney disease, unspecified; I25.2 Old myocardial infarction; I48.91 Unspecified atrial fibrillation; E78.5 Hyperlipidemia, unspecified | CPT/HCPCS: G0463 ==

== ENCOUNTER 2018-07-18 00:37 | Day surgery (SDC) | payer MEDICARE, BC | END 2018-07-18 22:48 | disposition home or self-care (01) | LOC: WOUND 00:37 | DX: L97.821 Non-pressure chronic ulcer of other part of left lower leg limited to breakdown of skin (principal); I87.2 Venous insufficiency (chronic) (peripheral); I13.0 Hypertensive heart and chronic kidney disease with heart failure and stage 1 through stage 4 chronic kidney disease, or unspecified chronic kidney disease; I50.9 Heart failure, unspecified; N18.9 Chronic kidney disease, unspecified; I48.91 Unspecified atrial fibrillation; I25.2 Old myocardial infarction; E78.5 Hyperlipidemia, unspecified | CPT/HCPCS: G0463 ==

== ENCOUNTER 2018-10-30 11:24 | Day surgery (SDC) | payer MEDICARE, BC ==
[~2018-10-30] VITALS: Ht 152.4 cm; Wt 48.0 kg
[2018-10-30] MEDS ORDERED: Coumadin2 MG PO (13:14)
--- NOTE | 2018-10-30 15:07 | NUR ---
PT AND DAUGHTER VERBALIZES UNDERSTANDING WRITTEN AND VERBAL ORDERS. VSS. PT DC IV DC'D. CATH INTACT. PRESSURE DSG IN PLACE. PT DC TO HOME VIA WC BY DAUGHTER.
== END 2018-10-30 15:15 | disposition home or self-care (01) ==
LOC: MHTC 11:24
DX: I87.2 Venous insufficiency (chronic) (peripheral) (principal); L97.829 Non-pressure chronic ulcer of other part of left lower leg with unspecified severity
CPT/HCPCS: 36475; 99152; C1888; C1894; J1644; J2250; J3010; J7040

== ENCOUNTER 2018-11-06 12:15 | Day surgery (SDC) | payer MEDICARE, BC ==
[~2018-11-06 12:15] MED LIST changes: +Coumadin2 MG PO
== END 2018-11-06 22:45 | disposition home or self-care (01) ==
LOC: WOUND 12:15
DX: S71.102A Unspecified open wound, left thigh, initial encounter (principal); I13.0 Hypertensive heart and chronic kidney disease with heart failure and stage 1 through stage 4 chronic kidney disease, or unspecified chronic kidney disease; N18.9 Chronic kidney disease, unspecified; I50.9 Heart failure, unspecified; I48.91 Unspecified atrial fibrillation; Z87.891 Personal history of nicotine dependence
CPT/HCPCS: G0463

== ENCOUNTER 2018-11-12 08:45 | Day surgery (SDC) | payer MEDICARE, BC | END 2018-11-12 22:38 | disposition home or self-care (01) | LOC: WOUND | DX: S71.102D Unspecified open wound, left thigh, subsequent encounter (principal); S41.102D Unspecified open wound of left upper arm, subsequent encounter; I13.0 Hypertensive heart and chronic kidney disease with heart failure and stage 1 through stage 4 chronic kidney disease, or unspecified chronic kidney disease; I50.9 Heart failure, unspecified; N18.9 Chronic kidney disease, unspecified; I48.91 Unspecified atrial fibrillation | CPT/HCPCS: G0463 ==

== ENCOUNTER 2018-11-18 00:25 | Day surgery (SDC) | payer MEDICARE, BC | END 2018-11-18 22:55 | disposition home or self-care (01) | LOC: WOUND 00:25 | DX: S71.102D Unspecified open wound, left thigh, subsequent encounter (principal); S41.102D Unspecified open wound of left upper arm, subsequent encounter; I13.0 Hypertensive heart and chronic kidney disease with heart failure and stage 1 through stage 4 chronic kidney disease, or unspecified chronic kidney disease; I50.9 Heart failure, unspecified; N18.9 Chronic kidney disease, unspecified; E78.5 Hyperlipidemia, unspecified | CPT/HCPCS: G0463 ==

== ENCOUNTER 2018-11-26 00:22 | Day surgery (SDC) | payer MEDICARE, BC | END 2018-11-26 22:48 | disposition home or self-care (01) | LOC: WOUND 00:22 | DX: L97.122 Non-pressure chronic ulcer of left thigh with fat layer exposed (principal); S71.102D Unspecified open wound, left thigh, subsequent encounter; I13.0 Hypertensive heart and chronic kidney disease with heart failure and stage 1 through stage 4 chronic kidney disease, or unspecified chronic kidney disease; I50.9 Heart failure, unspecified; N18.9 Chronic kidney disease, unspecified; Z98.890 Other specified postprocedural states ==

== ENCOUNTER 2018-12-03 08:29 | Day surgery (SDC) | payer MEDICARE, BC | END 2018-12-03 22:53 | disposition home or self-care (01) | LOC: WOUND 08:29 | DX: S71.102A Unspecified open wound, left thigh, initial encounter (principal); S41.102A Unspecified open wound of left upper arm, initial encounter; I13.0 Hypertensive heart and chronic kidney disease with heart failure and stage 1 through stage 4 chronic kidney disease, or unspecified chronic kidney disease; I50.9 Heart failure, unspecified; N18.9 Chronic kidney disease, unspecified; E78.5 Hyperlipidemia, unspecified ==

== ENCOUNTER 2018-12-10 00:11 | Day surgery (SDC) | payer MEDICARE, BC | END 2018-12-10 22:42 | disposition home or self-care (01) | LOC: WOUND 00:11 | DX: L97.122 Non-pressure chronic ulcer of left thigh with fat layer exposed (principal); I13.0 Hypertensive heart and chronic kidney disease with heart failure and stage 1 through stage 4 chronic kidney disease, or unspecified chronic kidney disease; I50.9 Heart failure, unspecified; N18.9 Chronic kidney disease, unspecified | CPT/HCPCS: G0463 ==

== ENCOUNTER 2018-12-17 08:12 | Day surgery (SDC) | payer MEDICARE, BC | END 2018-12-17 22:40 | disposition home or self-care (01) | LOC: WOUND 08:12 | DX: S71.102D Unspecified open wound, left thigh, subsequent encounter (principal); S41.102D Unspecified open wound of left upper arm, subsequent encounter; I13.0 Hypertensive heart and chronic kidney disease with heart failure and stage 1 through stage 4 chronic kidney disease, or unspecified chronic kidney disease; I50.9 Heart failure, unspecified; N18.9 Chronic kidney disease, unspecified ==

== ENCOUNTER 2018-12-24 00:11 | Day surgery (SDC) | payer MEDICARE, BC | END 2018-12-24 22:45 | disposition home or self-care (01) | LOC: WOUND 00:11 | DX: S71.102D Unspecified open wound, left thigh, subsequent encounter (principal); I13.0 Hypertensive heart and chronic kidney disease with heart failure and stage 1 through stage 4 chronic kidney disease, or unspecified chronic kidney disease; N18.9 Chronic kidney disease, unspecified; I50.9 Heart failure, unspecified; E78.5 Hyperlipidemia, unspecified; X58.XXXD Exposure to other specified factors, subsequent encounter; Z79.899 Other long term (current) drug therapy; Z79.01 Long term (current) use of anticoagulants | CPT/HCPCS: G0463 ==

== ENCOUNTER 2018-12-31 00:06 | Day surgery (SDC) | payer MEDICARE, BC | END 2018-12-31 22:42 | disposition home or self-care (01) | LOC: WOUND 00:06 | DX: S71.102D Unspecified open wound, left thigh, subsequent encounter (principal); I13.0 Hypertensive heart and chronic kidney disease with heart failure and stage 1 through stage 4 chronic kidney disease, or unspecified chronic kidney disease; I50.9 Heart failure, unspecified; N18.9 Chronic kidney disease, unspecified; E78.5 Hyperlipidemia, unspecified; Z79.899 Other long term (current) drug therapy; Z79.01 Long term (current) use of anticoagulants | CPT/HCPCS: G0463 ==

== ENCOUNTER 2019-01-14 08:27 | Day surgery (SDC) | payer MEDICARE, BC | END 2019-01-14 22:43 | disposition home or self-care (01) | LOC: WOUND 08:27 | DX: S71.102D Unspecified open wound, left thigh, subsequent encounter (principal); I13.0 Hypertensive heart and chronic kidney disease with heart failure and stage 1 through stage 4 chronic kidney disease, or unspecified chronic kidney disease; I50.9 Heart failure, unspecified; N18.9 Chronic kidney disease, unspecified; E78.5 Hyperlipidemia, unspecified; Z79.899 Other long term (current) drug therapy; Z79.01 Long term (current) use of anticoagulants | CPT/HCPCS: G0463 ==

== ENCOUNTER 2019-02-04 08:25 | Day surgery (SDC) | payer MEDICARE, BC ==
[~2019-02-04 08:25] MED LIST changes: -Coumadin2 MG PO; +METO50ER PO; +WARF1 PO
== END 2019-02-04 23:01 | disposition home or self-care (01) ==
LOC: WOUND 08:25
DX: S71.102D Unspecified open wound, left thigh, subsequent encounter (principal); I13.0 Hypertensive heart and chronic kidney disease with heart failure and stage 1 through stage 4 chronic kidney disease, or unspecified chronic kidney disease; N18.9 Chronic kidney disease, unspecified; I50.9 Heart failure, unspecified; E78.5 Hyperlipidemia, unspecified; Z79.899 Other long term (current) drug therapy; Z79.01 Long term (current) use of anticoagulants
CPT/HCPCS: G0463

== ENCOUNTER 2019-03-25 12:07 | Inpatient (IN) | payer MEDICARE, BC ==
[~2019-03-25] VITALS: Ht 152.4 cm; Wt 54.5 kg
[2019-03-25 13:32] LABS: BASOPHILS ABSOLUTE AUTO 0.05 K/mm3 (0.00-0.23); BASOPHILS PERCENT AUTO 1 % (0-2); EOSINOPHILS ABSOLUTE AUTO 0.12 K/mm3 (0.00-0.68); EOSINOPHILS PERCENT AUTO 2 % (0-6); Hematocrit 43.7 % (33.0-51.0); IMMATURE GRAN ABSOLUTE AUTO 0.04 K/mm3 (0.00-0.10); IMMATURE GRAN PERCENT AUTO 1 % (0-1); LYMPHOCYTES ABSOLUTE AUTO 0.42 K/mm3 (0.84-5.20); LYMPHOCYTES PERCENT AUTO 5 % (21-46); MONOCYTES ABSOLUTE AUTO 0.54 K/mm3 (0.16-1.47); MONOCYTES PERCENT AUTO 7 % (4-13); Mean Corpuscular Volume 106 fL (80-100); Mean Platelet Volume 10.4 fL (9.1-12.4); NEUTROPHILS ABSOLUTE AUTO 6.79 K/mm3 (1.96-9.15); NEUTROPHILS PERCENT AUTO 85 % (41-73); NRBC ABSOLUTE 0.02 K/mm3 (0.00-0.02); NRBC Auto 0.3 /100 WBC (0.0-0.2); Platelet Count 283 K/mm3 (150-400); RDW Coefficient Variation 13.2 % (11.7-14.2); RDW Standard Deviation 51.3 fL (35.1-46.3); Red Blood Cell Count 4.12 M/mm3 (3.80-5.20); White Blood Cell Count 7.96 K/mm3 (4.00-11.30)
[2019-03-25 14:00] LABS: Free Thyroxine 1.28 ng/dL (0.70-1.60)
[2019-03-25 14:04] LABS: Thyroid Stimulating Hormone 3.37 uIU/mL (0.360-4.800)
[2019-03-25 14:54] LABS: Albumin, Blood 3.5 g/dL (3.4-5.0); Albumin/Globulin Ratio 0.7 (0.8-1.8); Bilirubin, Total 0.8 mg/dL (0.1-1.0); Bun/Creatinine Ratio 47.9 (12.0-20.0); Calcium, Blood 10.1 mg/dL (8.5-10.1); Creatinine, Blood 3.26 mg/dL (0.40-1.00); Total Protein, Blood 8.5 g/dL (6.4-8.2)
[2019-03-25] MEDS ORDERED: PANT40 PO (15:43)
[2019-03-25] MEDS ORDERED: FURO40 PO (15:43)
[2019-03-25] MEDS ORDERED: ALLO100 PO (15:44)
[2019-03-25] MEDS ORDERED: LEVSOD75 PO (15:44)
[2019-03-25] MEDS ORDERED: WARF1 PO (16:05)
[2019-03-25 16:13] LABS: Source, Urine Clean Catch
[2019-03-25 16:17] LABS: Bilirubin, Urine Neg (Neg); Blood, Urine Neg (Neg); Glucose Qualitative, Urine 2+ (Neg); Ketones, Urine Neg (Neg); Leukocyte Esterase, Urine 2+ (Neg); Nitrite, Urine Neg (Neg); Protein, Urine Neg (Neg); Urobilinogen, Urine NORM (Normal)
[2019-03-25 16:19] LABS: Appearance, Urine Clear (Clear); Color, Urine Yellow (P-Yellow)
[2019-03-25 16:28] LABS: Bacteria Many /hpf; Red Blood Cells, Urine 0-2 /hpf (0-2); Squamous Epithelial Cells Few /hpf (Few)
--- NOTE | 2019-03-25 17:24 | NUR ---
RECEIEVED REPORT FROM DYLAN DAMIAN RN, AT 1713. PATIENT TO TRANSFER TO ROOM 337 FROM THE ER. CONTACT [facility] SET UP THE PATIENT HAS A GI PANEL ORDERED.
--- NOTE | 2019-03-25 18:03 | NUR ---
Patient agreed to allow me to provide care on the morning of 03/26/19.
[2019-03-25 18:10] LABS: International Normalized Ratio 5.34
--- NOTE | 2019-03-25 18:20 | NUR ---
PATIENT ARRIVED TO ROOM 337 VIA STRETCHER AT 1734. 2 PERSON MAX ASSIST TO HOSPITAL BED. ADMISSION ASSESSMENT COMPLETED WITH THE EXCEPTION OF MED REQ; SENT REQUEST TO [facility] FOR MED LIST.
[2019-03-25] MEDS ORDERED: Vitamin D2000 UNIT PO (19:08)
[2019-03-25] MEDS ORDERED: CYAN500 PO (19:08)
[2019-03-25] MEDS ORDERED: Hair, Skin & N1 EACH PO (19:08)
[2019-03-25] MEDS ORDERED: Biotin300 MCG PO (19:09)
[2019-03-25 20:38] LABS: Bun/Creatinine Ratio 54.2 (12.0-20.0); Calcium, Blood 9.3 mg/dL (8.5-10.1); Creatinine, Blood 2.73 mg/dL (0.40-1.00); Potassium, Blood 4.9 mmol/L (3.5-5.5)
[2019-03-26 05:56] LABS: Bun/Creatinine Ratio 56.9 (12.0-20.0); Calcium, Blood 9.4 mg/dL (8.5-10.1); Creatinine, Blood 2.18 mg/dL (0.40-1.00); Potassium, Blood 5.2 mmol/L (3.5-5.5)
[2019-03-26 06:02] LABS: Prothrombin Time Results 51.7 Sec (9.7-11.5)
[2019-03-26 06:14] LABS: International Normalized Ratio 5.31
--- NOTE | 2019-03-26 06:19 | NUR ---
03/26/19 0600 PT SLEPT WELL THIS SHIFT. WAS ASSIST TO BSC SEVERAL TIMES AND INCONT. ONCE. DENIES ANY S/S OR DISCOMFORT AT THIS TIME. VITALS STABLE WITH HEART RATE HIGH SINCE ADMISSION.
--- NOTE | 2019-03-26 18:20 | NUR ---
SHIFT SUMMARY PT AXO TO SELF, CITY AND FOLLOWING DIRECTIONS. FORGETFUL AT TIMES. BED ALARM ON SOFT TOUCH CALL LIGHT WITHIN REACH. PT WORKED WITH PHYSICAL AND OCCUPATIONAL THERAPY, SEE NOTE. VSS. PT DENIES SOB, PAIN AND NV. FAMILY EXPRESSED CONCERN ABOUT PT'S LIVING SITUATION AND INQUIRED ABOUT [employer] QUALITY ASSURANCE SPECIALIST RESOURCES. INFORMATICS PHARMACIST CALLED WHO CALLED PT'S DAUGHTER WITH REQUESTED INFORMATION. IV PATENT AND INFUSING PER EMAR. NO ACUTE CHANGES THIS SHIFT. PT CONTINUES TO BE INCONTINENT. CHANGED PRN.
--- NOTE | 2019-03-26 19:04 | NUR ---
Per admit trigger, I met with Mrs. Diaz to offer prayer and emotional support. She told me "I feel too sick for visit" and declined my offer to pray. [employer] services will remain available.
[2019-03-27 05:20] LABS: BASOPHILS ABSOLUTE AUTO 0.03 K/mm3 (0.00-0.23); BASOPHILS PERCENT AUTO 1 % (0-2); EOSINOPHILS ABSOLUTE AUTO 0.29 K/mm3 (0.00-0.68); EOSINOPHILS PERCENT AUTO 6 % (0-6); Hematocrit 36.1 % (33.0-51.0); Hemoglobin 11.7 g/dL (11.5-16.0); IMMATURE GRAN ABSOLUTE AUTO 0.01 K/mm3 (0.00-0.10); IMMATURE GRAN PERCENT AUTO 0 % (0-1); LYMPHOCYTES PERCENT AUTO 8 % (21-46); MONOCYTES ABSOLUTE AUTO 0.41 K/mm3 (0.16-1.47); MONOCYTES PERCENT AUTO 8 % (4-13); Mean Corpuscular HGB 33.2 pg (26.0-34.0); Mean Corpuscular HGB Conc 32.4 g/dL (31.5-36.5); Mean Platelet Volume 10.3 fL (9.1-12.4); NEUTROPHILS ABSOLUTE AUTO 3.95 K/mm3 (1.96-9.15); NEUTROPHILS PERCENT AUTO 78 % (41-73); Platelet Count 228 K/mm3 (150-400); RDW Coefficient Variation 13.3 % (11.7-14.2); RDW Standard Deviation 48.9 fL (35.1-46.3); Red Blood Cell Count 3.52 M/mm3 (3.80-5.20); White Blood Cell Count 5.09 K/mm3 (4.00-11.30)
[2019-03-27 05:22] LABS: Mean Corpuscular Volume 103 fL (80-100)
--- NOTE | 2019-03-27 05:40 | NUR ---
SHIFT SUMMARY PT PLEASANT AND COOPERATIVE. ALERT AND ORIENTED, FORGETFUL AT TIMES. NO COMPLAINTS OF PAIN OR SOB. PT JUST REPORTS THAT SHE FEELS "TIRED". PT REMAINED IN BED THROUGHOUT THE NIGHT. INCONTINENT. ATTENDS IN PLACE. CHANGED NEEDED. HEAVY WETTER. SECOND OF 2 BAGS OF FLUID COMPLETED. PT SALINE LOCKED. PT NOT ON TELEMETRY, HOWEVER PT'S RHYTHM FEELS LIKE AFIB WHEN CHECKING PULSES. PT'S HEART RATE HAS BEEN IN THE 110'S TONIGHT. PT REFUSED SCD'S THIS EVENING. VITAL SIGNS STABLE. WILL CONTINUE TO MONITOR.
[2019-03-27 05:43] LABS: Bun/Creatinine Ratio 61.6 (12.0-20.0); Calcium, Blood 9.3 mg/dL (8.5-10.1); Creatinine, Blood 1.59 mg/dL (0.40-1.00); Magnesium, Blood 1.4 mg/dL (1.6-2.4); Potassium, Blood 4.8 mmol/L (3.5-5.5)
[2019-03-27 05:44] LABS: Prothrombin Time Results 40.3 Sec (9.7-11.5)
[2019-03-27 06:04] LABS: International Normalized Ratio 4.08
--- NOTE | 2019-03-27 15:26 | NUR ---
SHIFT SUMMARY PT IS A/O X 4 WITH NO C/O PAIN SHE IS VISIBLY FATIGUED AND GENERALLY WEAK. PT HAS HAD A POOR APPETITE BUT FLUIDS HAVE BEEN ENCOURAGED. IV ABO INFUSED ORDERED WITH NO ISSUES OBSERVED. PT HAS BEEN INC AND REQUIRES X 2 ASSIST FOR TRANSFERS AND RE-POSITIONING. HER DAUGHTER WAS HERE FOR A SHORT TIME THIS MORNING. PT HAS BEEN RESTING SINCE GOING BACK TO BED FROM CHAIR AFTER LUNCH. SHE IS ABLE TO MAKE HER NEEDS KNOWN. CALL LIGHT IN REACH.
--- NOTE | 2019-03-28 04:01 | NUR ---
SHIFT SUMMARY NO ACUTE CHANGES TO REPORT THIS SHIFT. PT HAS RESTED IN BED MOST OF THE NIGHT. SHE DENIES NEEDS. PT IS STILL PRETTY WEAK AND IS NOT ABLE TO GRASP OBJECTS OR MAKE A FIST. PT ENCOURAGED TO USE HAND FISHER SPEAR PROVIDED BY PHYSICAL THERAPY TO INCREASE HER STRENGTH. VITALS STABLE. ASSESSMENT UNCHANGED. BED IN LOWEST POSITION, CALL LIGHT WITHIN REACH. WILL CONTINUE TO MONITOR AND REPORT TO ONCOMING RN.
[2019-03-28 05:37] LABS: International Normalized Ratio 3.64; Prothrombin Time Results 36.2 Sec (9.7-11.5)
[2019-03-28 05:49] LABS: Bun/Creatinine Ratio 48.8 (12.0-20.0); Calcium, Blood 9.3 mg/dL (8.5-10.1); Creatinine, Blood 1.6 mg/dL (0.40-1.00); Potassium, Blood 5.1 mmol/L (3.5-5.5)
--- NOTE | 2019-03-28 09:52 | NUR ---
CALLED DR GASPAR. PT HEART RATE 127-135. PT NOT ON TELE. ASYMPTOMATIC 75MG PO METOPROLOL ORDERED BUT SBP 102 OUTSIDE PARAMETERS FOR ADMINITSTRATION. PER DR GASPAR HOLD DOSE OF 75 PO METOPROLOL OK TO GIVE OT DOSE OF 50MG METOPROLOL. ORDER PLACED WILL GIVE MED ONCE PHARMACY VERIFIES.
[2019-03-28] MEDS ORDERED: CEPH250A PO (11:53)
[2019-03-28] MEDS ORDERED: ACET325 PO (11:53)
--- NOTE | 2019-03-28 15:32 | NUR ---
DISCHARGE NOTE- PT PULSE CAME DOWN TO 102 ON REPEAT VITALS. PT STILL ASYMPTOMATIC. PT WORKED WITH OT TO GET READY TO GO. 2PA FOR TRANSFER TO THE WHEELCHAIR FOR [facility] TRANSPORT. PT TAKEN TO [facility] BY TRANSPORT, BOTH IV'S DC'D PRIOR TO DISCHARGE.
== END 2019-03-28 15:03 | DRG 683 ==
LOC: ER 12:07 → MEDS 17:29
PROVIDERS: Emergency Medicine; Physician Assistant; ADMIT Internal Medicine
DX: N17.9 Acute kidney failure, unspecified (principal); I50.42 Chronic combined systolic (congestive) and diastolic (congestive) heart failure; N39.0 Urinary tract infection, site not specified; E86.0 Dehydration; N18.3 Chronic kidney disease, stage 3 (moderate); E78.5 Hyperlipidemia, unspecified; E03.9 Hypothyroidism, unspecified; I12.9 Hypertensive chronic kidney disease with stage 1 through stage 4 chronic kidney disease, or unspecified chronic kidney disease; B96.20 Unspecified Escherichia coli [E. coli] as the cause of diseases classified elsewhere; Z79.01 Long term (current) use of anticoagulants
CPT/HCPCS: 36415; 80048; 80053; 81001; 83735; 84439; 84443; 85025; 85610; 87077; 87086; 87186; 90686; 93005; 93010; 93306; 96361; 96374; 97110; 97112; 97162; 97166; 97530; 97535; 99285-25; A9270; G0008; J0696; J1815; J3475; J7030; J7050; P9612

== ENCOUNTER 2019-10-28 11:50 | Inpatient (IN) | payer MEDICARE, BC ==
[~2019-10-28] VITALS: Ht 152.4 cm; Wt 68.2 kg
[~2019-10-28 11:50] MED LIST changes: +ACET325 PO; +Biotin300 MCG PO; +CEPH250A PO; +CYAN500 PO; +Hair, Skin & N1 EACH PO; -METO50ER PO; +Vitamin D2000 UNIT PO
[2019-10-28 12:40] LABS: BASOPHILS ABSOLUTE AUTO 0.03 K/mm3 (0.00-0.23); BASOPHILS PERCENT AUTO 1 % (0-2); EOSINOPHILS ABSOLUTE AUTO 0.07 K/mm3 (0.00-0.68); EOSINOPHILS PERCENT AUTO 2 % (0-6); Hematocrit 50.4 % (33.0-51.0); Hemoglobin 15.3 g/dL (11.5-16.0); IMMATURE GRAN ABSOLUTE AUTO 0.01 K/mm3 (0.00-0.10); IMMATURE GRAN PERCENT AUTO 0 % (0-1); LYMPHOCYTES ABSOLUTE AUTO 0.59 K/mm3 (0.84-5.20); LYMPHOCYTES PERCENT AUTO 14 % (21-46); MONOCYTES ABSOLUTE AUTO 0.39 K/mm3 (0.16-1.47); MONOCYTES PERCENT AUTO 9 % (4-13); Mean Corpuscular HGB Conc 30.4 g/dL (31.5-36.5); Mean Corpuscular Volume 96 fL (80-100); Mean Platelet Volume 12.4 fL (9.1-12.4); NEUTROPHILS ABSOLUTE AUTO 3.07 K/mm3 (1.96-9.15); NEUTROPHILS PERCENT AUTO 74 % (41-73); Platelet Count 149 K/mm3 (150-400); RDW Standard Deviation 63.9 fL (35.1-46.3); Red Blood Cell Count 5.28 M/mm3 (3.80-5.20); White Blood Cell Count 4.16 K/mm3 (4.00-11.30)
[2019-10-28 13:06] LABS: Alanine Aminotransfer (ALT/SGP 26 U/L (12-78); Albumin, Blood 3.5 g/dL (3.4-5.0); Albumin/Globulin Ratio 0.8 (0.8-1.8); Alk Phos 144 U/L (50-136); Anion Gap 7 mmol/L (6-16); Aspartate Aminotrans (AST/SGOT 39 U/L (12-37); Blood Urea Nitrogen 53 mg/dL (8-24); Bun/Creatinine Ratio 39.8 (12.0-20.0); CO2, Blood 30 mmol/L (21-32); Calcium, Blood 9.6 mg/dL (8.5-10.1); Chloride, Blood 107 mmol/L (98-108); Creatinine, Blood 1.33 mg/dL (0.40-1.00); Globulin, Blood 4.5 g/dL (2.2-4.0); Glomerular Filtration Rate 40 (60-); Glucose, Blood 91 mg/dL (70-99); Potassium, Blood 4.6 mmol/L (3.5-5.5); Sodium, Blood 144 mmol/L (136-145); Troponin I <0.015 ng/mL (0.000-0.040)
[2019-10-28 13:20] LABS: Prothrombin Time Results 41.2 Sec (9.7-11.5)
[2019-10-28 13:21] LABS: International Normalized Ratio 4.17
[2019-10-28 13:44] LABS: Base Excess Venous 5.9 mmol/L; Bicarbonate Venous 26.6 mmol/L (24.0-30.0); PCO2 Venous 65.4 mmHg (38-42); PO2 Venous 35.8 mmHg (38-42)
[2019-10-28] MEDS ORDERED: PANT40 PO (15:02)
[2019-10-28] MEDS ORDERED: Lisinopril2.5 MG PO (15:02)
[2019-10-28] MEDS ORDERED: ALLO100 PO (15:03)
[2019-10-28] MEDS ORDERED: LEVSOD100 PO (15:03)
[2019-10-28] MEDS ORDERED: METO25ER PO (15:04)
[2019-10-28] MEDS ORDERED: FURO40 PO (15:05)
[2019-10-28] MEDS ORDERED: SIMV40 PO (15:05)
[2019-10-28] MEDS ORDERED: Coumadin2 MG PO (15:06)
[2019-10-28 15:38] LABS: Source, Urine Voided
[2019-10-28 15:42] LABS: Appearance, Urine Hazy (Clear); Bilirubin, Urine Neg (Neg); Blood, Urine 1+ (Neg); Color, Urine Yellow (P-Yellow); Glucose Qualitative, Urine Neg (Neg); Ketones, Urine Neg (Neg); Leukocyte Esterase, Urine 3+ (Neg); Nitrite, Urine Neg (Neg); Protein, Urine 2+ (Neg); Urobilinogen, Urine 1+ (Normal)
[2019-10-28 15:54] LABS: Bacteria Many /hpf; Red Blood Cells, Urine Rare /hpf (0-2); Squamous Epithelial Cells Few /hpf (Few); White Blood Cells, Urine 25-50 /hpf (0-5)
--- NOTE | 2019-10-28 16:00 | NUR ---
Report received from Curly ED RN. Anticipate arrival of pt to 343 shortly.
--- NOTE | 2019-10-28 17:31 | NUR ---
Received the pt from the ED on stretcher. She is dyspneic with minimal exertion, and also when she is reclining less than 45degrees. Lung sounds are diminished in the bases, with fine inspiratory crackles noted. Heart sounds are irregular, 114 / minute, and atrial fibrillation reported by ROSANGELA Sanders. Blood pressure elevated. Dr. Ahn called to start antihypertensives today, as the pt is certain that she did not take any of her medications at all today. New order received from the doctor.
--- NOTE | 2019-10-28 18:33 | NUR ---
Vital signs improved after pt received her metoprolol and lisinopril. Her heart rate remains 110-120, atrial fibrillation. Daughter is at the bedside. PT requires frequent reminders to keep her oxygen nasal cannula in place. She states that she "is used to wearing oxygen", not because she uses it at home but because of frequent hospitalizations; however, she often takes it out and doesn't remember that she has. Without the oxygen her spo2 is 89% at rest.
--- NOTE | 2019-10-29 05:55 | NUR ---
SHIFT SUMMARY PT IS AN 89 Y/O FEMALE, ADMITTED FOR ACUTE RESPIRATORY FAILURE WITH HYPOXIA. SHE IS A&O X 2, FORGETFUL AT TIMES, AND A 1PA TO THE BATHROOM. PT DENIED ANY COMPLAINTS OF PAIN, NAUSEA OR SOB. TELE SHOWED AFIB IN THE 90S. VITAL SIGNS OTHERWISE STABLE. NO ACUTE CHANGES IN PT CONDITION NOTED DURING THE NIGHT. WILL CONTINUE TO MONITOR AND TREAT PER EMAR UNTIL HAND OFF TO DAY SHIFT RN.
[2019-10-29 06:06] LABS: Hematocrit 46.6 % (33.0-51.0); Mean Corpuscular HGB 28.8 pg (26.0-34.0); Mean Corpuscular Volume 96 fL (80-100); Mean Platelet Volume 11.9 fL (9.1-12.4); Platelet Count 118 K/mm3 (150-400); RDW Coefficient Variation 18.4 % (11.7-14.2); RDW Standard Deviation 62.6 fL (35.1-46.3); Red Blood Cell Count 4.86 M/mm3 (3.80-5.20)
[2019-10-29 06:19] LABS: International Normalized Ratio 1.77; Prothrombin Time Results 18.3 Sec (9.7-11.5)
[2019-10-29 06:42] LABS: Bun/Creatinine Ratio 39.9 (12.0-20.0); Calcium, Blood 9.3 mg/dL (8.5-10.1); Creatinine, Blood 1.43 mg/dL (0.40-1.00); Potassium, Blood 3.9 mmol/L (3.5-5.5)
[2019-10-29 10:49] LABS: Automated BF WBC Count 0.098 K/mm3 (0-999); Body Fluid WBC Count 98 /mm3 (0-999)
[2019-10-29 11:01] LABS: Albumin, Body Fluid 1.5 g/dL
[2019-10-29 11:03] LABS: Lactate Dehydrogenase, Body Fl 60 U/L
[2019-10-29 11:10] LABS: Protein, Body Fluid 3.1 g/dL
[2019-10-29 11:16] LABS: RBC Count, Body Fluid 246 /mm3 (0-0)
[2019-10-29 11:53] LABS: Total Cell Count, Body Fluid 100
[2019-10-29 11:54] LABS: Appearance, Body Fluid Clear (Clear); Color, Body Fluid L Yellow (None-Yellow)
--- NOTE | 2019-10-29 18:36 | NUR ---
SHIFT SUMMARY PT AWAKE DURING SHIFT REPORT. PLEASANT AND CO-OP WITH CARE. RAPID COVID ORDERED AND COMPLETED PER PRE THORACENTESIS PROTOCOL. RADIOLOGY REPORTED THEY WOULD TAKE PT DOWN ABOUT 09:30. RADIOLOGY CALLED TO REPORT 1L TAKEN OFF DURING PROCEDURE. PT RETURNED TO , NO C/O. UP TO BSC WITH 1P ASSIST. PT RESTED QUIETLY THIS AFTERNOON, AFTER VISITOR LEFT. BLE'S WITH REDNESS, SWELLING, AND PEELING. SKIN VERY DRY WITH SOME SCABS. PT ON 2L NC AT START OF SHIFT; BIOX 97-99%. O2 DECREASED TO 1L NC AT THIS TIME. PT AGREEABLE SHE DOES NOT USE OR HAVE O2 AT HOME. IV LASIX GIVEN PER EMAR. CALL LT IN REACH. REPORT TO BE GIVEN TO ONCOMING RN.
--- NOTE | 2019-10-30 06:11 | NUR ---
SHIFT SUMMARY PATIENT SLEPT WELL ALL NIGHT. HAD MINIMAL NEEDS. PATIENT CURRENTLY ON 1 LITER O2 VIA NASAL CANULA. PATIENT HAD NO COMPLAINTS OF PAIN, DISCOMFORT, OR SHORTNESS OF BREATH. IV PATENT AND FLUSHED. BED IN LOWEST POSITION WITH WHEELS LOCKED. CALL LIGHT WITHIN REACH. REPORT GIVEN TO ONCOMING RN.
[2019-10-30 06:20] LABS: BASOPHILS ABSOLUTE AUTO 0.01 K/mm3 (0.00-0.23); BASOPHILS PERCENT AUTO 0 % (0-2); EOSINOPHILS ABSOLUTE AUTO 0.15 K/mm3 (0.00-0.68); EOSINOPHILS PERCENT AUTO 3 % (0-6); Hematocrit 40.4 % (33.0-51.0); Hemoglobin 12.6 g/dL (11.5-16.0); IMMATURE GRAN ABSOLUTE AUTO 0.02 K/mm3 (0.00-0.10); IMMATURE GRAN PERCENT AUTO 0 % (0-1); LYMPHOCYTES ABSOLUTE AUTO 0.46 K/mm3 (0.84-5.20); LYMPHOCYTES PERCENT AUTO 10 % (21-46); MONOCYTES ABSOLUTE AUTO 0.36 K/mm3 (0.16-1.47); MONOCYTES PERCENT AUTO 8 % (4-13); Mean Corpuscular HGB 29.4 pg (26.0-34.0); Mean Corpuscular HGB Conc 31.2 g/dL (31.5-36.5); Mean Corpuscular Volume 94 fL (80-100); Mean Platelet Volume 12.7 fL (9.1-12.4); NEUTROPHILS ABSOLUTE AUTO 3.81 K/mm3 (1.96-9.15); NEUTROPHILS PERCENT AUTO 79 % (41-73); Platelet Count 117 K/mm3 (150-400); RDW Coefficient Variation 17.9 % (11.7-14.2); RDW Standard Deviation 61.1 fL (35.1-46.3); Red Blood Cell Count 4.28 M/mm3 (3.80-5.20); White Blood Cell Count 4.81 K/mm3 (4.00-11.30)
[2019-10-30 06:30] LABS: International Normalized Ratio 1.67; Prothrombin Time Results 17.4 Sec (9.7-11.5)
[2019-10-30 06:43] LABS: Bun/Creatinine Ratio 42.6 (12.0-20.0); Calcium, Blood 8.5 mg/dL (8.5-10.1); Creatinine, Blood 1.41 mg/dL (0.40-1.00); Potassium, Blood 3.7 mmol/L (3.5-5.5)
--- NOTE | 2019-10-30 18:08 | NUR ---
SHIFT SUMMARY: NO ACUTE EVENTS THIS SHIFT. DENIES PAIN. NO EVENTS ON TELEMETRY, AFIB 70-90'S. WAS EVALUATED BY PT AND OT. LUNG SOUNDS ARE DIM ON R SIDE, SLIGHT MONTOYA, ON ROOM AIR. GOOD PO INTAKE. PT IS HOPING TO BE DISCHARGED HOME TOMORROW.
[2019-10-31 05:46] LABS: BASOPHILS ABSOLUTE AUTO 0.01 K/mm3 (0.00-0.23); BASOPHILS PERCENT AUTO 0 % (0-2); EOSINOPHILS ABSOLUTE AUTO 0.16 K/mm3 (0.00-0.68); EOSINOPHILS PERCENT AUTO 4 % (0-6); Hematocrit 42.4 % (33.0-51.0); Hemoglobin 13.3 g/dL (11.5-16.0); IMMATURE GRAN ABSOLUTE AUTO 0.01 K/mm3 (0.00-0.10); IMMATURE GRAN PERCENT AUTO 0 % (0-1); LYMPHOCYTES ABSOLUTE AUTO 0.58 K/mm3 (0.84-5.20); LYMPHOCYTES PERCENT AUTO 13 % (21-46); MONOCYTES ABSOLUTE AUTO 0.35 K/mm3 (0.16-1.47); MONOCYTES PERCENT AUTO 8 % (4-13); Mean Corpuscular HGB 29.2 pg (26.0-34.0); Mean Corpuscular HGB Conc 31.4 g/dL (31.5-36.5); Mean Corpuscular Volume 93 fL (80-100); NEUTROPHILS ABSOLUTE AUTO 3.25 K/mm3 (1.96-9.15); NEUTROPHILS PERCENT AUTO 75 % (41-73); RDW Coefficient Variation 17.8 % (11.7-14.2); RDW Standard Deviation 60.3 fL (35.1-46.3); Red Blood Cell Count 4.55 M/mm3 (3.80-5.20); White Blood Cell Count 4.36 K/mm3 (4.00-11.30)
[2019-10-31 05:52] LABS: Mean Platelet Volume 12.5 fL (9.1-12.4); Platelet Count 120 K/mm3 (150-400)
--- NOTE | 2019-10-31 05:58 | NUR ---
SHIFT SUMMARY PATIENT VERY PLEASANT TO WORK WITH OVERNIGHT, WAS OCCASIONALLY CONFUSED AND TRIED TO GET UP WITHOUT ASKING FOR HELP A COUPLE OF TIMES. PATIENT SLEPT WELL AND WAS ON ROOM AIR OVERNIGHT. SHE HAD NO COMPLAINTS OF PAIN OR SHORTNESS OF BREATH, NO WHEEZING OR CRACKLES NOTED IN LUNGS. BED IN LOWEST POSITION WITH WHEELS LOCKED. PATIENT CURRENTLY UP IN CHAIR WITH CHAIR ALARM IN PLACE AND ON. CALL LIGHT WTIHIN REACH. REPORT GIVEN TO ONCOMING RN.
[2019-10-31 06:06] LABS: International Normalized Ratio 2.47; Prothrombin Time Results 25.1 Sec (9.7-11.5)
[2019-10-31 06:12] LABS: Bun/Creatinine Ratio 40.6 (12.0-20.0); Calcium, Blood 8.6 mg/dL (8.5-10.1); Creatinine, Blood 1.6 mg/dL (0.40-1.00); Potassium, Blood 3.9 mmol/L (3.5-5.5)
--- NOTE | 2019-10-31 11:02 | NUR ---
RN CALLED PATIENT'S DAUGHTER TO INFORM HER OF DC TO [facility]
[2019-10-31] MEDS ORDERED: TORSE20 PO (11:32)
[2019-10-31] MEDS ORDERED: ATOR20 PO (11:33)
== END 2019-10-31 13:07 | DRG 291 ==
LOC: ER 11:50 → ERHOLD 15:03 → MEDS 15:03
PROVIDERS: Emergency Medicine; Family Medicine; Internal Medicine; Nurse Practitioner Acute Care; ADMIT Internal Medicine
PROC: 0W993ZZ Drainage of Right Pleural Cavity, Percutaneous Approach (ICD-10-PCS; principal; 2019-10-29)
DX: I13.0 Hypertensive heart and chronic kidney disease with heart failure and stage 1 through stage 4 chronic kidney disease, or unspecified chronic kidney disease (principal); I50.43 Acute on chronic combined systolic (congestive) and diastolic (congestive) heart failure; J96.01 Acute respiratory failure with hypoxia; J90 Pleural effusion, not elsewhere classified; J98.11 Atelectasis; N18.3 Chronic kidney disease, stage 3 (moderate); E03.9 Hypothyroidism, unspecified; E87.5 Hyperkalemia; I48.91 Unspecified atrial fibrillation; J44.9 Chronic obstructive pulmonary disease, unspecified; M10.9 Gout, unspecified; E78.5 Hyperlipidemia, unspecified; Z79.01 Long term (current) use of anticoagulants; K21.9 Gastro-esophageal reflux disease without esophagitis; Z66 Do not resuscitate
CPT/HCPCS: 32555; 36415; 71045; 71046; 80048; 80053; 81001; 82042; 82803; 83615; 83880; 84157; 84439; 84443; 84484; 85025; 85027; 85610; 88108; 89051; 93005; 93010; 94761; 96374; 97110; 97162; 97165; 97535; 99285-25; A9270-GY; J1940; J3430; U0002